=== PATIENT | female | born 1990 | race African-American/Black ===

== ENCOUNTER 2017-08-29 01:07 | Emergency (ER) | payer OTHER ==
[~2017-08-29] VITALS: Ht 175.3 cm; Wt 117.9 kg
[2017-08-29] MEDS ORDERED: LATUDA20 MG PO (01:16)
[2017-08-29 01:25] VITALS: BP 130/79
[2017-08-29 01:46] LABS: BILIRUBIN, URINE NEGATIVE (NEGATIVE); GLUCOSE, URINE (UA) NEGATIVE (NEGATIVE); KETONES,URINE NEGATIVE (NEGATIVE); LEUKOCYTE ESTERASE ,URINE 1+ (NEGATIVE); NITRITE,URINE NEGATIVE (NEGATIVE); PH,URINE 6 (4.5-8.0); PROTEIN,URINE 1+ (NEGATIVE); UROBILINOGEN,URINE 4 MG/DL (0.0-1.0)
[2017-08-29 01:47] LABS: APPEARANCE,URINE CLEAR; COLOR,URINE YELLOW
[2017-08-29 01:55] VITALS: BP 130/79
--- NOTE | 2017-08-29 03:37 | Emergency Room Report ---
History of Present Illness General Chief Complaint: Female Urogenital Problems Source: Patient Present Illness HPI 27-year-old female presents with a std concern. Patient states for the last couple days she has had wells-white vaginal discharge, slight dysuria, denies any abdominal pain at this time. Patient states that she is sexually active with one partner, however unsure if he is sitting on her. Denies any fever chills nausea vomiting Allergies: Coded Allergies: No Known Allergies (Unverified , 08/29/17) Patient History Past Medical History: see triage record Past Surgical History: none Pertinent Family History: none Last Menstrual Period: 08/15/17 Now: No : 7 Para: 3 Reviewed Nursing Documentation: PMH: Agreed, PSxH: Agreed Nursing Documentation-PMH History Of Psychiatric Problem: Yes - anxiety, depression Review of Systems All Other Systems: negative except mentioned in HPI Physical Exam Vital Signs Date Time Temp Pulse Resp B/P (MAP) Pulse Ox O2 Delivery O2 Flow Rate FiO2 08/29/17 01:12 98.1 79 14 130/79 98 Room Air Sp02 EP Interpretation: reviewed, normal General Appearance: normal inspection, well appearing, no apparent distress, alert, GCS 15, non-toxic Head: normocephalic, atraumatic Eyes: bilateral eye normal inspection, bilateral eye PERRL, bilateral eye EOMI ENT: normal ENT inspection, normal pharynx, normal voice, moist mucus membranes Neck: normal inspection, full range of motion, supple Respiratory: normal inspection, lungs clear, normal breath sounds, no respiratory distress, no retraction, no wheezing, speaking full sentences, chest symmetrical Cardiovascular #1: normal inspection, regular rate, rhythm, no edema, normal capillary refill Cardiovascular #2: 2+ radial (R), 2+ radial (L) Gastrointestinal: normal inspection, non tender, soft, non-distended, no guarding Musculoskeletal: normal inspection, back normal, normal range of motion, non- tender Neurologic: normal inspection, alert, oriented x3, responsive, motor strength/ tone normal, sensory intact, normal gait, speech normal Psychiatric: normal inspection, judgement/insight normal, memory normal Skin: normal inspection, normal color, no rash, warm/dry, well hydrated, normal turgor Medical Decision Making Diagnostic Impression: Primary Impression: Concern about STD in female without diagnosis ER Course 27-year-old female with vaginal discharge concern for STD testing DDX: STD rule out UTI Plan: UA, urine ER course: Patient has remained stable during ED stay. Patient was offered to be treated empirically for gonorrhea and Chlamydia, however states that she does not want to be treated and she wants to be tested first. I informed the patient that we do not do routine STD testing in the emergency room as there is no followup for results. Patient states that she can go to her doctor tomorrow to get tested and will also get treated. Patient was cautioned not risk of not being treated can lead to pelvic inflammatory disease, infertility, TOA, patient understands and states that she will be going to her doctor tomorrow for treatment Disposition: Patient is to be discharged to home. Patient is instructed to follow up with their primary care doctor one day Strict return precautions discussed with patient such as fever, chills, worsening/severe pain, nausea, vomiting, which may indicate severe illness. Patient verbalizes understanding and agrees with plan. Please note that this Emergency Department Report was dictated using [employer] technology software, occasionally this can lead to erroneous entry secondary to interpretation by the dictation equipment Last Vital Signs Date Time Temp Pulse Resp B/P (MAP) Pulse Ox O2 Delivery O2 Flow Rate FiO2 08/29/17 01:55 98.1 79 14 130/79 98 Room Air Disposition: HOME, SELF-CARE Condition: Stable Referrals: [facility],REFERRING (PCP) Patient Instructions: Sexually Transmitted Disease, [id number] Maddy Flores M.D. Aug 29, 2017 03:37
== END 2017-08-29 02:30 | disposition home or self-care (01) ==
LOC: EMR 02:25
DX: N89.8 Other specified noninflammatory disorders of vagina (principal); R30.0 Dysuria
CPT/HCPCS: 81001; 81025; 99282